=== PATIENT | female | born 1980 | race Caucasian/White ===

== ENCOUNTER → 2021-01-16 12:25 | Outpatient (CLI) | payer OTHER, SELFPAY | PROVIDERS: PCP Family Medicine; Visit Provider Family Medicine | DX: O91.22 Nonpurulent mastitis associated with the puerperium (principal) | CPT/HCPCS: 87070; 87075; 87077; 87147; 87186; 87205 ==

== ENCOUNTER 2021-02-04 19:17 | Emergency (ER) | payer OTHER, SELFPAY ==
[2021-02-04] VITALS (7 sets, daily range): BP systolic 113–131; BP diastolic 69–76; PULSE 109–119; RESP 12–31; TEMP 38; O2SAT 98–99; BMI 22.6
[2021-02-04 20:45] LABS: Add Manual Diff / Slide Review NO; Basophils Absolute Auto 100 /uL (0-100); Basophils Percent Auto 0.9 % (0-2); Eosinophils Absolute Auto 100 /uL (0-450); Eosinophils Percent Auto 0.6 % (2-4); Hematocrit 45.4 % (36-46); Hemoglobin 15.4 g/dL (12.0-16.0); Lymphocytes Absolute Auto 800 /uL (1100-4500); Lymphocytes Percent Auto 8.8 % (25-40); Mean Corpuscular HGB Conc 33.9 % (30-36); Mean Corpuscular Hemoglobin 29.9 PG (26-34); Mean Corpuscular Volume 88.1 fL (80-100); Monocytes Absolute Auto 700 /uL (0-900); Monocytes Percent Auto 7.5 % (3-14); Neutrophils Absolute Auto 7600 /uL (1500-7000); Neutrophils Percent Auto 82.2 % (50-75); Platelet Count 164 X10^3/uL (150-400); Red Blood Cell Count 5.16 X10^6/uL (4.0-5.2); White Blood Cell Count 9.2 X10^3/uL (4.5-11.0)
[2021-02-04 21:00] LABS: Alanine Aminotransferase 35 IU/L (<35); Albumin 4.7 g/dL (3.5-5.0); Albumin Globulin Ratio 1.2 (1.0-2.8); Alkaline Phosphatase 99 U/L (38-126); Aspartate Aminotransferase 41 IU/L (14-36); Bilirubin Total 0.5 mg/dL (0.2-1.3); Blood Urea Nitrogen 14 mg/dL (7-17); Calcium 9.8 mg/dL (8.4-10.2); Carbon Dioxide 25 mmol/L (22-32); Chloride 103 mmol/L (98-107); Estimated Glomerular Filt Rate > 60.0 mL/min (>60); Globulin 3.8 g/dL (1.7-4.1); Glucose 122 mg/dL (70-100); Lactate (Lactic Acid) 0.9 mmol/L (0.7-2.1); Lipase 109 U/L (23-300); Potassium 3.5 mmol/L (3.4-5.1); Sodium 138 mmol/L (137-145); Total Protein 8.5 g/dL (6.3-8.2)
[2021-02-04] MEDS: SODIUM CHLORIDE 0.9% 1,000 ML 1000 ML IV (21:08)
[2021-02-04 21:17] LABS: Procalcitonin 0.16 ng/mL (<0.5)
[2021-02-04 21:18] LABS: HEMOLYSIS 58 (0-50)
--- NOTE | 2021-02-04 22:47 | DI.US.S_ITS ---
LIMITED ULTRASOUND OF LEFT BREAST AND AXILLA: 02/05/2021 CLINICAL: Focal left breast pain and redness. Focal left breast lump. Fever. No prior exams were available for comparison. Color flow ultrasound of the left breast axilla was performed. Robertson scale images of the real-time examination were reviewed. Irregular hypoechoic areas with increased vascularity are seen in the left breast upper outer quadrant at the 1-3 o'clock positions. No discrete well-formed fluid collection is seen to suggest abscess formation. Multiple enlarged lymph nodes are seen in the left axilla with preserved fatty gisell. IMPRESSION: BENIGN Irregular hypervascular areas in the upper outer quadrant of the left breast most likely represent mastitis with phlegmon. No discrete abscess is seen. Enlarged left axillary lymph nodes are most likely reactive. Follow-up ultrasound is recommended in approximately 3 months once symptoms have resolved to document resolution and exclude an underlying mass. Findings are concordant with the preliminary interpretation provided by [facility]. There is no sonographic evidence of malignancy. A follow-up left ultrasound in 3 months is recommended. This exam was interpreted at Station ID: [id number]. Electronically Signed By: Yazan [email or web address]:02/05/2021 09:30:05 letter sent: Followup Recommended Ultrasound BI-RADS: 2 Benign
[2021-02-05] VITALS (19 sets, daily range): BP systolic 111–130; BP diastolic 60–71; PULSE 75–122; RESP 14–21; TEMP 36.9–39.1; O2SAT 94–99
[2021-02-05] MEDS: ACETAMINOPHEN 325 MG TABLET 975 MG PO (01:16)
--- NOTE | 2021-02-05 01:53 | ED.FEVER ---
HPI - Fever General Chief Complaint: Fever Stated Complaint: FEVER ABSCESS LEFT BREAST Time Seen by Provider: 02/04/21 20:27 Mode of arrival: Ambulatory History of Present Illness HPI Narrative: 40-year-old female nonsmoker with noncontributory medical history presents with fever and chills as well as left breast pain, redness and swelling. She is breast feeding and and delivered in the end of December. She had a prior episode of mastitis and had been on a 10 day course of dicloxacillin. She finished that a few days ago and started having symptoms again. She has felt fatigued and feverish with a temperature as high as 101? prior to arrival which climb to 1 0 to here. She denies any vomiting but has been slightly nauseated. She has had no chest pain or shortness of breath. She denies abdominal pain, diarrhea or constipation. Related Data Previous Rx's Medication Instructions Recorded dicloxacillin 500 mg capsule 500 mg PO QID #40 cap 01/16/21 amoxicillin 875 mg-potassium 1 tab PO BID #20 tab 02/05/21 clavulanate 125 mg tablet (Augmentin) Allergies Allergy/AdvReac Type Severity Reaction Status Date / Time No Known Drug Allergies Allergy Verified 02/04/21 20:12 Review of Systems Review of Systems Narrative: GENERAL: See HPI HEENT: Denies sinus pain, ear pain, sore throat, difficulty swallowing, dizziness. RESPIRATORY: Denies dyspnea, cough, wheezing, hemoptysis, sputum. CARDIOVASCULAR: Denies chest pain, palpitations, orthopnea, edema, GASTROINTESTINAL: Denies nausea, vomiting, abdominal pain, diarrhea, constipation, melena. : Denies dysuria, frequency, incontinence, hematuria, urinary retention. MUSCULOSKELETAL: denies weakness, joint pain, or bony pain SKIN: See HPI NEUROLOGIC: Denies weakness, headache, numbness, change in speech, confusion, seizures, incoordination. PSYCHIATRIC: No concerning psychosocial issues. 12 point review of systems is negative except for those stated above Patient History Medical History Chicken pox (~1998) Frequent UTI (~2009) Social History Smoking Status: Never smoker Smoking Status: Never smoker Exam Narrative Exam Narrative: GENERAL: [40] year old patient appears stated age. Well-developed patient, in mild distress. Ill-appearing HEAD: Atraumatic. Normocephalic. EYES: Pupils equal round and reactive. Extraocular motions intact. No scleral icterus. No injection or drainage. ENT: Nose without bleeding, purulent drainage. Throat without erythema, tonsillar hypertrophy or exudate. Airway patent. NECK: Trachea midline. Non tender CARDIOVASCULAR: Tachycardic and regular rhythm without murmurs, gallops, or rubs. RESPIRATORY: Clear to auscultation. Breath sounds equal bilaterally. No wheezes, rales, or rhonchi. GASTROINTESTINAL: Abdomen soft, non-tender, nondistended. EXTREMITIES: No edema or joint tenderness. BACK: Nontender without deformity or crepitance. No flank tenderness. NEURO: AOx3. SKIN: Left breast pain, redness and tenderness in the upper outer quadrant left breast, no fluctuance. Otherwise No rash or erythema of visible areas Initial Vital Signs Initial Vital Signs: Vital Signs Temperature 100.4 F H 02/04/21 20:03 Pulse Rate 119 H 02/04/21 20:03 Respiratory Rate 12 02/04/21 20:03 Blood Pressure 131/76 02/04/21 20:03 Pulse Oximetry 99 02/04/21 20:03 Course Orders Ordered: ED Orders 02/04/21 22:47 breast LT limited Stat Discontinued Medications Acetaminophen (Acetaminophen 325 Mg Tablet) 975 mg PO NOW ONE Stop: 02/05/21 01:08 Last Admin: 02/05/21 01:16 Dose: 975 mg Documented by: [email or web address] Amoxicillin/Clavulanate Potassium (Amoxicillin/Clav 875/125 Mg) 1 tab PO NOW ONE Stop: 02/05/21 06:14 Sodium Chloride (Normal Saline 0.9%) 1,000 mls @ 1,000 mls/hr IV BOLUS ONE Stop: 02/04/21 21:13 Last Infusion: 02/05/21 00:12 Dose: 0 mls/hr Documented by: Admin: 02/04/21 21:08 Dose: 1,000 mls/hr Documented by: [email or web address] Ampicillin Sodium/Sulbactam (Sodium 3 gm/ Sodium Chloride) 100 mls @ 100 mls/hr IV NOW ONE Stop: 02/05/21 01:27 Last Infusion: 02/05/21 04:10 Dose: 0 mls/hr Documented by: Admin: 02/05/21 02:17 Dose: 100 mls/hr Documented by: [email or web address] Sodium Chloride (Normal Saline 0.9%) 1,000 mls @ 1,000 mls/hr IV BOLUS ONE Stop: 02/05/21 03:12 Last Infusion: 02/05/21 03:30 Dose: 0 mls/hr Documented by: [email or web address] Admin: 02/05/21 02:17 Dose: 1,000 mls/hr Documented by: [email or web address] Reevaluation(s) Reevaluation #1: patient becoming increasingly tachycardic, temp retaken and measures 102.4. Tylenol ordered, second bag of fluid Reevaluation #2: patient resting comfortably, HR down to the 80s and 90s. Consultations Consultation #1: Dr. Bustamante recommends Unasyn. Vital Signs Vital signs: Vital Signs - 8 hr 02/04/21 22:30 02/04/21 23:00 02/04/21 23:30 Temperature Pulse Rate 114 H 112 H 116 H Respiratory Rate 16 17 31 H Blood Pressure 120/73 113/76 123/69 Pulse Oximetry 98 98 99 02/05/21 00:00 02/05/21 00:30 02/05/21 01:00 Temperature Pulse Rate 107 H 115 H 122 H Respiratory Rate 21 20 20 Blood Pressure 125/65 126/70 127/71 Pulse Oximetry 99 98 96 02/05/21 01:16 02/05/21 01:30 02/05/21 02:10 Temperature 102.4 F H Pulse Rate 118 H 97 H Respiratory Rate 17 15 Blood Pressure 130/68 Pulse Oximetry 96 02/05/21 02:19 02/05/21 02:30 02/05/21 03:00 Temperature 99 F Pulse Rate 96 H 93 H 96 H Respiratory Rate 15 15 14 Blood Pressure 111/60 Pulse Oximetry 94 98 97 02/05/21 03:30 02/05/21 04:00 02/05/21 04:10 Temperature 99 F Pulse Rate 101 H 97 H Respiratory Rate 19 Blood Pressure Pulse Oximetry 96 97 02/05/21 04:30 02/05/21 05:00 Temperature Pulse Rate 93 H 89 Respiratory Rate 14 15 Blood Pressure Pulse Oximetry 96 96 MDM - Fever Medical Records Medical records narrative: Patient has a recurrence of mastitis. She had recently been diagnosed with mastitis and had a course of dicloxacillin and had a complete resolution of symptoms before this recurrence. Imaging would suggest against abscess or anything to drain. And though initially it looked as if she would be appropriate for admission she has had IV antibiotics and fluids and feels much better, her vital signs have improved and she feels well enough to go home. Additionally, given her she would highly prefer not to have her child and family in-hospital an exposed to COVID. She has been given extensive return precautions and questions answered to her apparent satisfaction Lab Data Result diagrams: 02/04/21 20:30 02/04/21 20:30 Labs: Lab Results 02/04/21 02/04/21 02/04/21 Range/Units 20:30 20:30 20:30 WBC 9.2 (4.5-11.0) X10^3/uL RBC 5.16 (4.0-5.2) X10^6/uL Hgb 15.4 (12.0-16.0) g/dL Hct 45.4 (36-46) % MCV 88.1 (80-100) fL MCH 29.9 (26-34) PG MCHC 33.9 (30-36) % RDW 13.0 (11.6-14.8) % Plt Count 164 (150-400) X10^3/uL Neut % (Auto) 82.2 H (50-75) % Lymph % (Auto) 8.8 L (25-40) % Benzie % (Auto) 7.5 (3-14) % Eos % (Auto) 0.6 L (2-4) % Baso % (Auto) 0.9 (0-2) % Neut # (Auto) 7600 H (2978-1494) /uL Lymph # (Auto) 800 L (3769-6642) /uL Benzie # (Auto) 700 (0-900) /uL Eos # (Auto) 100 (0-450) /uL Baso # (Auto) 100 (0-100) /uL Sodium 138 (137-145) mmol/L Potassium 3.5 (3.4-5.1) mmol/L Chloride 103 (98-107) mmol/L Carbon Dioxide 25 (22-32) mmol/L BUN 14 (7-17) mg/dL Creatinine 0.70 (0.52-1.04) mg/dL Estimated GFR > 60.0 (>60) mL/min BUN/Creatinine Ratio 20.0 (6-22) Glucose 122 H (70-100) mg/dL Lactate 0.9 (0.7-2.1) mmol/L Calcium 9.8 (8.4-10.2) mg/dL Total Bilirubin 0.5 (0.2-1.3) mg/dL AST 41 H (14-36) IU/L ALT 35 H (<35) IU/L Alkaline Phosphatase 99 (38-126) U/L Total Protein 8.5 H (6.3-8.2) g/dL Albumin 4.7 (3.5-5.0) g/dL Globulin 3.8 (1.7-4.1) g/dL Albumin/Globulin Ratio 1.2 (1.0-2.8) Lipase 109 (23-300) U/L Procalcitonin 0.16 (<0.5) ng/mL Imaging Data Breast US: Radiologist's Impression: Ill-defined, lobulated, heterogeneous, predominantly hypoechoic lesions with internal blood flow most likely related to cellulitis with phlegmon. No walled abscess appreciated Discharge Plan Departure Patient Disposition: Home Clinical Impression: Mastitis Instructions: DI for Mastitis Activity Restrictions/Additional Instructions: *You have been diagnosed with [mastitis without evidence of abscess] *What to do: *Please continue to take your regular medications as directed. [x ] New medication prescriptions sent to your pharmacy: [ [facility]] [ ] New medication written as a paper prescription [ ] No new medications given *Please follow up with your primary care provider in 2-3 days, call for an appointment. Let them know you were seen in the Emergency Department and that we ask that you be seen in follow up. We will electronically transmit a record of today's note if your PCP is in our system *If you do not have a primary care provider please contact the [facility] Resource line at [phone]. They will ask some questions about your medical history and help get you set up with a doctor in the community. *Return to Emergency Department if you should have any new, worsening or concerning symptoms, such as [fever greater than 101 F, shaking chills, worsening pain, persistent vomiting or other bothersome symptoms] Prescriptions: New amoxicillin-pot clavulanate [Augmentin] 875-125 mg tablet 1 tab PO BID Qty: 20 RF: 0 No Action dicloxacillin 500 mg capsule 500 mg PO QID Qty: 40 RF: 0 Referrals: Jorge Granados MD [Primary Care Provider] -
[2021-02-05] MEDS: SODIUM CHLORIDE 0.9% 1,000 ML 1000 ML IV (02:17)
[2021-02-05] MEDS: AMPICILLIN/SULBACTAM 3 GM 3 GM in SODIUM CHLORIDE 0.9% 100 ML IV (02:17)
[2021-02-05] MEDS: AMOXICILLIN/CLAV 875/125 MG 1 TAB PO (06:33)
== END 2021-02-05 07:10 | disposition home or self-care (01) ==
PROVIDERS: Emergency Provider Emergency Medicine; PCP Family Medicine
DX: N61.0 Mastitis without abscess (principal); N64.4 Mastodynia; R50.9 Fever, unspecified; R11.0 Nausea
CPT/HCPCS: 36415; 76642; 80053; 83605; 83690; 84145; 85025; 87040; 96361; 96365; 96366; 99284; J0295

== ENCOUNTER → 2021-05-14 11:49 | Outpatient (CLI) | payer OTHER, SELFPAY ==
--- NOTE | 2021-05-14 | DI.US.S_ITS ---
LIMITED ULTRASOUND OF LEFT BREAST: 05/14/2021 CLINICAL: Patient returns today to evaluate three focal asymmetries in the right breast. Comparison is made to exam dated: 02/04/2021 [facility]. Color flow and real-time ultrasound of the left breast 1-3 o'clock, and retroareolar regions were performed on the areas of interest. There is a benign 0.6 cm x 0.5 cm x 0.4 cm oval lymph node in the left breast at 2 o'clock posterior depth 8 cm from the nipple. This oval lymph node is of mixed echogenicity with fatty hilum. This abnormality is decreased in size. Color flow imaging demonstrates that there is no increase in vascularity. There also is a benign 0.4 cm x 0.3 cm x 0.2 cm oval cyst in the left breast at 3 o'clock anterior depth 2 cm from the nipple. This oval cyst is hypoechoic with a well-defined boundary. Color flow imaging demonstrates that there is no vascularity present. There has been interval resolution of the hypoechoic soft tissue in the upper outer quadrant seen on the prior study consistent with resolution of mastitis. IMPRESSION: INCOMPLETE: NEEDS ADDITIONAL IMAGING EVALUATION The 0.6 cm x 0.5 cm x 0.4 cm oval lymph node in the left breast at 2 o'clock posterior depth is benign. The 0.4 cm x 0.3 cm x 0.2 cm oval cyst in the left breast at 3 o'clock anterior depth is benign. Follow up mammogram is recommended after cessation of breast feeding. This exam was interpreted at Station ID: [id number]. Electronically Signed By: Viraj sanders/:05/14/2021 16:34:17 letter sent: Additional Imaging Needed Ultrasound BI-RADS: 0 Indeterminate
== END ==
PROVIDERS: PCP Naturopath; Referring Provider Naturopath; Visit Provider Naturopath
DX: N63.20 Unspecified lump in the left breast, unspecified quadrant (principal); N60.02 Solitary cyst of left breast
CPT/HCPCS: 76642

== ENCOUNTER → 2021-07-18 15:21 | Outpatient (CLI) | payer OTHER, SELFPAY ==
[2021-07-19 19:20] LABS: Appearance Urine UA CLEAR; Bilirubin Urine UA NEGATIVE (NEGATIVE); Color Urine UA YELLOW; Glucose Urine UA NEGATIVE (Negative); Ketones Urine UA NEGATIVE (NEGATIVE); Leukocyte Esterase Urine UA NEGATIVE (NEGATIVE); Nitrite Urine UA NEGATIVE (Negative); Occult Blood Urine UA NEGATIVE (Negative); Protein Urine UA NEGATIVE (Negative); Specific Gravity Urine UA 1.015 (1.000-1.035); Urobilinogen Urine UA 0.2 E.U./dL (0.2)
[2021-07-19 19:34] LABS: Bacteria Urine None Seen; Culture Indicated Urine Cult Not Indicated; RBC Urine None Seen (0-5/HPF); Squamous Epithelial Cell Urine 0-1 /HPF (0-5/HPF); WBC Urine None Seen (0-5/HPF)
== END ==
PROVIDERS: PCP Naturopath; Referring Provider Physician Assistant Medical; Visit Provider Physician Assistant Medical
DX: R10.33 Periumbilical pain (principal)
CPT/HCPCS: 81001

== ENCOUNTER → 2021-07-19 13:39 | Outpatient (CLI) | payer OTHER, SELFPAY ==
[2021-07-19 18:57] LABS: Add Manual Diff / Slide Review NO; Basophils Absolute Auto 100 /uL (0-100); Basophils Percent Auto 0.9 % (0-2); Eosinophils Absolute Auto 1100 /uL (0-450); Eosinophils Percent Auto 14.5 % (2-4); Hematocrit 40.2 % (36-46); Hemoglobin 13.8 g/dL (12.0-16.0); Lymphocytes Absolute Auto 2200 /uL (1100-4500); Lymphocytes Percent Auto 29.6 % (25-40); Mean Corpuscular HGB Conc 34.3 % (30-36); Mean Corpuscular Volume 87.3 fL (80-100); Monocytes Absolute Auto 600 /uL (0-900); Monocytes Percent Auto 8.8 % (3-14); Neutrophils Absolute Auto 3400 /uL (1500-7000); Neutrophils Percent Auto 46.2 % (50-75); Platelet Count 248 X10^3/uL (150-400); Red Cell Distribution Width 13.1 % (11.6-14.8); White Blood Cell Count 7.4 X10^3/uL (4.5-11.0)
[2021-07-19 19:14] LABS: Alanine Aminotransferase 15 IU/L (<35); Albumin 4.4 g/dL (3.5-5.0); Albumin Globulin Ratio 1.4 (1.0-2.8); Alkaline Phosphatase 96 U/L (38-126); Aspartate Aminotransferase 25 IU/L (14-36); BUN Creatinine Ratio 32.9 (6-22); Bilirubin Total 0.4 mg/dL (0.2-1.3); Blood Urea Nitrogen 23 mg/dL (7-17); Calcium 10.3 mg/dL (8.4-10.2); Carbon Dioxide 30 mmol/L (22-32); Chloride 101 mmol/L (98-107); Estimated Glomerular Filt Rate > 60.0 mL/min (>60); Globulin 3.2 g/dL (1.7-4.1); Glucose 89 mg/dL (70-100); HEMOLYSIS < 15 (0-50); Potassium 3.9 mmol/L (3.4-5.1); Sodium 138 mmol/L (137-145); Total Protein 7.6 g/dL (6.3-8.2)
[2021-07-19 19:50] LABS: TSH w/ Reflex to FT4 1.68 uIU/mL (0.47-4.68)
== END ==
PROVIDERS: PCP Naturopath; Visit Provider Physician Assistant Medical
DX: R10.33 Periumbilical pain (principal)
CPT/HCPCS: 80053; 84443; 85025

== ENCOUNTER → 2022-04-01 13:32 | Outpatient (CLI) | payer OTHER, SELFPAY ==
[2022-04-01 19:54] LABS: Add Manual Diff / Slide Review NO; Basophils Absolute Auto 100 /uL (0-100); Basophils Percent Auto 1.2 % (0-2); Eosinophils Absolute Auto 300 /uL (0-450); Eosinophils Percent Auto 3.9 % (2-4); Hematocrit 38.9 % (36-46); Hemoglobin 13.4 g/dL (12.0-16.0); Lymphocytes Absolute Auto 2500 /uL (1100-4500); Lymphocytes Percent Auto 30.5 % (25-40); Mean Corpuscular HGB Conc 34.5 % (30-36); Mean Corpuscular Hemoglobin 29.9 PG (26-34); Mean Corpuscular Volume 86.9 fL (80-100); Monocytes Absolute Auto 800 /uL (0-900); Monocytes Percent Auto 9.7 % (3-14); Neutrophils Absolute Auto 4600 /uL (1500-7000); Neutrophils Percent Auto 54.7 % (50-75); Platelet Count 260 X10^3/uL (150-400); Red Blood Cell Count 4.47 X10^6/uL (4.0-5.2); Red Cell Distribution Width 13.1 % (11.6-14.8); White Blood Cell Count 8.3 X10^3/uL (4.5-11.0)
[2022-04-01 20:06] LABS: Alanine Aminotransferase 15 IU/L (<35); Albumin 4.7 g/dL (3.5-5.0); Albumin Globulin Ratio 1.6 (1.0-2.8); Alkaline Phosphatase 57 U/L (38-126); Aspartate Aminotransferase 24 IU/L (14-36); BUN Creatinine Ratio 27.7 (6-22); Bilirubin Total 0.4 mg/dL (0.2-1.3); Blood Urea Nitrogen 23 mg/dL (7-17); Calcium 9.9 mg/dL (8.4-10.2); Carbon Dioxide 24 mmol/L (22-32); Chloride 103 mmol/L (98-107); Estimated Glomerular Filt Rate > 60 mL/min (>60); Glucose 95 mg/dL (70-100); HEMOLYSIS < 15 (0-50); Potassium 4.4 mmol/L (3.4-5.1); Sodium 137 mmol/L (137-145); Total Protein 7.7 g/dL (6.3-8.2)
[2022-04-01 20:12] LABS: High Sensitivity CRP - Cardiac 0.7 mg/L (1.0-3.0)
[2022-04-01 20:24] LABS: Vitamin D 25 Hydroxy (D3) 80.6 ng/mL (30.0-100.0)
[2022-04-01 20:28] LABS: Free T3, Triiodothyronine Free 3.66 pg/mL (2.77-5.27); Free T4, Direct Thyroxine 1.26 ng/dL (0.78-2.19); Progesterone, Total 7.22 ng/mL
[2022-04-01 20:29] LABS: Erythrocyte Sedimentation Rate 10 MM/HR (0-20)
[2022-04-01 20:38] LABS: Ferritin 83 ng/mL (6-137)
[2022-04-01 20:42] LABS: Thyroid Stimulating Hormone 1.65 uIU/mL (0.47-4.68)
[2022-04-01 20:44] LABS: Estradiol, Total 69.6 pg/mL; HCG Quantitative /Beta subunit 13641 mIU/mL
[2022-04-03 05:38] LABS: Sex Hormone Binding Globulin 82.8 nmol/L (24.6-122.0)
[2022-04-04 23:28] LABS: Estrogen 212 pg/mL (.)
[2022-04-05 04:08] LABS: Triiodothyronine T3 Reverse 13.8 ng/dL (9.2-24.1)
== END ==
PROVIDERS: PCP Naturopath; Visit Provider Naturopath
DX: E03.9 Hypothyroidism, unspecified (principal); E34.9 Endocrine disorder, unspecified; E53.8 Deficiency of other specified B group vitamins; E55.9 Vitamin D deficiency, unspecified; E63.9 Nutritional deficiency, unspecified; G47.00 Insomnia, unspecified; N92.6 Irregular menstruation, unspecified; N95.1 Menopausal and female climacteric states; R23.3 Spontaneous ecchymoses; R53.83 Other fatigue; R61 Generalized hyperhidrosis; Z39.1 Encounter for care and examination of lactating mother; Z71.3 Dietary counseling and surveillance
CPT/HCPCS: 80053; 82306; 82670; 82672; 82728; 84144; 84270; 84439; 84443; 84481; 84482; 84702; 85025; 85651; 86140

== ENCOUNTER → 2024-11-29 12:08 | Outpatient (CLI) | payer BC, SELFPAY ==
[2024-11-29 20:33] LABS: Estradiol, Total 166.2 pg/mL
== END ==
PROVIDERS: PCP Physician Assistant Medical; Visit Provider Obstetrics & Gynecology Reproductive Endocrinology
DX: Z31.41 Encounter for fertility testing (principal)
CPT/HCPCS: 82670; 84144

== ENCOUNTER → 2025-01-13 10:52 | Outpatient (CLI) | payer BC, SELFPAY ==
[2025-01-13 19:01] LABS: Progesterone, Total 1.02 ng/mL
[2025-01-13 19:16] LABS: Estradiol, Total 21.7 pg/mL
== END ==
PROVIDERS: Obstetrics & Gynecology Reproductive Endocrinology; PCP Physician Assistant Medical
DX: Z31.41 Encounter for fertility testing (principal)
CPT/HCPCS: 36415; 82670; 83002; 84144

== ENCOUNTER → 2025-02-10 16:47 | Outpatient (CLI) | payer BC, SELFPAY ==
[2025-02-10 19:04] LABS: Progesterone, Total 0.94 ng/mL
[2025-02-10 19:20] LABS: Estradiol, Total 23.9 pg/mL
== END ==
PROVIDERS: PCP Physician Assistant Medical; Referring Provider Obstetrics & Gynecology Reproductive Endocrinology; Visit Provider Obstetrics & Gynecology Reproductive Endocrinology
DX: Z31.41 Encounter for fertility testing (principal)
CPT/HCPCS: 36415; 82670; 83002; 84144

== ENCOUNTER → 2025-03-14 14:17 | Outpatient (CLI) | payer BC, SELFPAY ==
[2025-03-14 20:03] LABS: HCG Quantitative /Beta subunit 241.21 mIU/mL
== END ==
PROVIDERS: PCP Physician Assistant Medical; Visit Provider Obstetrics & Gynecology Reproductive Endocrinology
DX: Z32.00 Encounter for pregnancy test, result unknown (principal)
CPT/HCPCS: 84702

== ENCOUNTER → 2025-03-16 14:17 | Outpatient (CLI) | payer OTHER, BC, SELFPAY ==
[2025-03-16 19:55] LABS: HCG Quantitative /Beta subunit 743.78 mIU/mL
== END ==
PROVIDERS: Obstetrics & Gynecology Reproductive Endocrinology; PCP Physician Assistant Medical
DX: Z32.01 Encounter for pregnancy test, result positive (principal)
CPT/HCPCS: 84702

== ENCOUNTER → 2025-05-11 12:50 | Outpatient (CLI) | payer BC, SELFPAY | LOC: LAB 12:51 | PROVIDERS: PCP Physician Assistant Medical; Visit Provider Nurse Practitioner Adult Health | DX: R82.998 Other abnormal findings in urine (principal) | CPT/HCPCS: 87086 ==